=== PATIENT | male | born 1950 | race Caucasian/White ===

== ENCOUNTER 2020-06-29 09:43 | Day surgery (SDC) | payer MEDICARE, BC ==
[~2020-06-29] VITALS: Ht 175.3 cm; Wt 104.5 kg
[~2020-06-29 09:43] MED LIST: PROPOFOL 10 MG/ML, 20ML ONE
[2020-06-29 10:22] VITALS: BP 131/88
[2020-06-29] MEDS ORDERED: PLEASE ENTER HEIGHT AND WEIGHT MC SCH (10:30)
[2020-06-29] MEDS ORDERED: SODIUM CHLORIDE 0.9% 500 ML IV PRN (10:30)
[2020-06-29] MEDS ORDERED: RIVA20TA PO (10:35)
[2020-06-29] MEDS ORDERED: VALS1TAB12 PO (10:36)
[2020-06-29] MEDS ORDERED: LEVO150T5 PO (10:37)
[2020-06-29] MEDS ORDERED: ROSU20TA2 PO (10:37)
[2020-06-29] MEDS ORDERED: METO50TA82 PO (10:38)
[2020-06-29] MEDS ORDERED: AMLO-150 PO (10:38)
[2020-06-29 11:01] LABS: ANION GAP 9 mmol/L (5-15); CALCIUM 9.6 mg/dL (8.5-10.1); CHLORIDE 108 mmol/L (98-107); CREATININE 1.25 mg/dL (0.7-1.3)
== END 2020-06-29 12:34 | disposition home or self-care (01) ==
LOC: CACL 09:43
PROVIDERS: ATTEND Internal Medicine Cardiovascular Disease
DX: I48.91 Unspecified atrial fibrillation (principal); G47.33 Obstructive sleep apnea (adult) (pediatric); I10 Essential (primary) hypertension; E78.5 Hyperlipidemia, unspecified; E03.9 Hypothyroidism, unspecified; Z79.01 Long term (current) use of anticoagulants; Z79.899 Other long term (current) drug therapy
CPT/HCPCS: 36415; 80048; 92960; 93005; J2704